=== PATIENT | female | born 1995 | race Hispanic/Latino ===

== ENCOUNTER 2024-08-07 18:19 | Emergency (ER) | payer BC, SELFPAY ==
[2024-08-07 18:22] VITALS: BP 121/78
[2024-08-07 19:33] LABS: ALT (SGPT) 11 U/L (0-35); AST (SGOT) 28 U/L (14-36); Albumin 4.7 g/dl (3.5-5.0); Alkaline Phosphatase 120 U/L (38-126); Blood Urea Nitrogen 11 mg/dl (7-17); Calcium 9.6 mg/dl (8.4-10.2); Carbon Dioxide 25 mmol/L (22-30); Chloride 102 mmol/L (98-107); Glucose 114 mg/dl (70-99); Potassium 4.6 mmol/L (3.5-5.1); Sodium 137 mmol/L (135-145); Total Bilirubin 0.5 mg/dl (0.2-1.3); Total Protein 7.7 g/dl (6.3-8.2); eGFR > 60.00
[2024-08-07 19:43] VITALS: BP 109/71
--- NOTE | 2024-08-07 19:50 | ED.GENMED ---
History of Present Illness
General
Chief Complaint: Dizziness
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
Exam Limitations: other (Language barrier)
Time Seen by Provider: 08/07/24 19:35
History of Present Illness
History of Present Illness:
This is a 29 year old female that comes in with c/o chest pain. States that she started about a week ago with left arm pain. States that today it the moved to her heart. Stats that this was around 6pm. States that she felt dizzy and that when she
lays down she sees stars. States that she was a little nauseated. Denies any fever, chills, SOB, cough, abd pain, vomiting, diarrhea, headache, urinary burning.
Past History
Past History
ED Past Medical History: Other (Tachycardia); Negative Asthma, HTN, Hypercholesterolemia or NIDDM
ED Past Surgical History: (X 1) and Other (Lump removed form back. )
Social History
Tobacco: Non-smoker
Alcohol: None
Personal:
Living: with family
Review of Systems
Review of Systems
All Other Systems: ROS reviewed and negative except as documented in HPI and ROS
Constitutional: Reports no symptoms; Denies fever or chills
EENT: Reports no symptoms
Respiratory: Reports no symptoms; Denies cough or trouble breathing
Cardiac: Reports chest pain
ABD/GI: Reports nausea; Denies abdominal pain, vomiting or diarrhea
: Reports no symptoms; Denies dysuria, frequency or urgency
Musculoskeletal: Reports no symptoms
Skin: Reports no symptoms
Neurological: Reports dizzy; Denies headache
Psychiatric: Reports no symptoms
Phy Exam
General Physical Exam
General Presentation: no apparent distress
General age: appears stated age
General Skin: warm and dry
General Habitus: normal
General Mental: alert
General Hydration: appears well hydrated
ENT Exam
ENT Exam: TM's normal, pharynx normal and neck supple
Eye Exam
Eye Exam: EOMI
Cardiovascular Exam
Cardiovascular Exam: regular rate/rhythm, no edema, no murmur and normal peripheral pulses
Pulmonary Exam
Pulmonary Exam: lungs clear, no respiratory distress, no rales, chest non tender, no crackles, no rhonchi, no wheezing and no cough
Gastrointestinal Exam
Gastrointestinal Exam: normal bowel sounds, non tender, soft, no organomegaly, no pulsatile mass and non distended
Musculoskeletal Exam
Musculoskeletal Exam: full ROM and no edema
Skin Exam
Skin Exam: normal color, warm/dry, no rash and no petechia
Psychiatric Exam
Psychiatric Exam: normal mood/affect
Course
Orders/Labs/Results
Orders:
Orders
08/07/24 18:20
Electrocardiogram (*1) Urgent
Reason for Study: Chest Pain
08/07/24 18:21
EKG- Treatment ONCE
08/07/24 18:56
Comprehensive Metabolic Panel Urgent
HCG, Serum Qualitative Screen Urgent
Troponin I Urgent
08/07/24 19:49
Add On- LAB Urgent
Tests Added?: hcg
CR Chest - 2 Views Urgent
Comment:
Reason For Exam: CHEST PAIN
08/07/24 19:50
Ketorolac [Toradol] 30 mg IV NOW STA
08/07/24 19:59
Complete Blood Count/With Diff Urgent
D-Dimer Urgent
Abnormal Lab Results
08/07/24 08/07/24
18:56 19:59
WBC 11.6 H 10^3/uL
(4.8-10.8)
RBC 3.90 L 10^6/uL
(4.20-5.40)
Hgb 11.7 L g/dL
(12.0-16.0)
Hct 34.2 L %
(37.0-47.0)
Absolute Neuts (auto) 9.3 H 10^3/uL
(1.4-6.5)
Neutrophils % 80.1 H %
(42.2-75.2)
Lymphocytes % 14.0 L %
(20.5-51.1)
Creatinine 0.5 L mg/dL
(0.6-1.0)
Glucose 114 H mg/dl
(70-99)
08/07/24 19:59
08/07/24 18:56
WBC very slightly elevated. H/H low. Glucose nonfasting. Troponin <0.012, D-dimer <0.27
Vital Signs
Initial and Last Documented VS:
Initial Vital Signs
Temp Pulse Resp BP Pulse Ox
98.2 F 93 20 121/78 99
08/07/24 18:22 08/07/24 18:22 08/07/24 18:22 08/07/24 18:22 08/07/24 18:22
Last Documented Vital Signs
Temp Pulse Resp BP Pulse Ox
98.2 F 96 17 103/64 100
08/07/24 18:22 08/07/24 22:15 08/07/24 22:15 08/07/24 21:00 08/07/24 22:15
MDM/Problems Addressed
Differential Diagnosis Includes:
Costochondritis, Coronary syndrome
MDM/Problems Addressed:
This is a 29 year old female that comes in with c/o chest pain. States that she had pain in the left arm that started a week ago. Then tonight she started with pain in her heart. States that she was dizzy and when she laid down she saw stars.
Will check labs. Chest x-ray, and medicate for pain.
Back into see patient. Via The language line, explained to that patient that her chest x-ray is normal and her Troponin and ECG are normal. Patient can use Ibuprofen for pain. Explained that this is most likely musculoskeletal in nature. Will also
give patient the free clinic information. Patient to return with any concerns.
Chronic conditions affecting care:
NA
Acute Exacerbation and/or Progression of Chronic Illness:
NA
*Radiology
Radiology exam reviewed: preliminary read by ED provider (Chest- negative for acute disease)
*Pulse Oximetry
Patient hypoxic: no
*EKG
Interpreted by ED Provider?: Yes
Heart Rate: 78
Rate: normal
Rhythm: sinus arrhythmia
[place]: normal axis
Interval: normal interval
QRS Pattern: normal QRS
Ischemia: no ischemia
*[employer] Interpretation
Rate: normal
Heart Rate: 93
Rhythm: sinus
*Critical Care Note
Total Time (30-74mins, 75-104mins- exclusive of procedures): Not Applicable
ED Attending Note
-
Portions of this chart may have been created with voice recognition software.� Occasional wrong word or��sound alike� substitutions may have occurred due to the inherent limitations of voice recognition software.
Discharge Plan
Departure
Patient Disposition: Home (Routine Discharge)
Date of Disposition: 08/07/24
Time of Disposition: 22:37
Patient with high blood pressure during this ER visit?: No
Condition: Good
Covid-19: Not Applicable
Discharge Problem:
Musculoskeletal chest pain
Instructions: Musculoskeletal Pain
Prescriptions:
No Action
metoprolol succinate 50 mg Tablet Extended Release 24 Hr
50 mg PO DAILY
sucralfate [Carafate] 100 mg/mL suspension
5 ml PO QID Qty: 200 0RF
famotidine [Pepcid] 20 mg tablet
20 mg PO DAILY Qty: 20 0RF
Referrals:
[facility]] - As needed
NONE,* [Family Provider] -
Activity Restrictions/Additional Instructions:
As discussed, your blood work, ECG and chest x-ray are normal. This is most likely musculoskeletal pain. You may use Ibuprofen 600mg every 6 hours with food for pain. You have also been given the information for the free clinic to check into this.
IF YOU HAVE ANY OTHER CONCERNS PLEASE RETURN TO THE EMERGENCY ROOM.
Interventions
Interventions:
*General Assessment Last Done: 08/07/24 18:22
ED- Cardiac Assessment Last Done: 08/07/24 20:02
ED- Neurological Assessment Last Done: 08/07/24 20:02
Discharge Date and Time
Print Language: [place]
[2024-08-07] MEDS: TORADOL 30 MG IV (19:56)
[2024-08-07 20:00] VITALS: BP 101/71
[2024-08-07 20:05] LABS: % Basophils 0.4 % (0-2); % Eosinophils 0.5 % (0-6); % Immature Granulocytes 0.3 % (0-0.5); % Monocytes 4.7 % (1.7-9.3); % Neutrophils 80.1 % (42.2-75.2); Absolute Basophils 0.1 10^3/uL (0-0.2); Absolute Eosinophils 0.1 10^3/uL (0-0.7); Absolute Lymphocytes 1.6 10^3/uL (1.2-3.4); Absolute Monocytes 0.5 10^3/uL (0.1-0.6); Absolute Neutrophils 9.3 10^3/uL (1.4-6.5); Hematocrit 34.2 % (37.0-47.0); Hemoglobin 11.7 g/dL (12.0-16.0); Mean Corp Hgb Conc. 34.2 g/dL (33.0-37.0); Mean Corpuscular Volume 87.7 fL (81.0-99.0); Mean Platelet Volume 10.3 fL (7.4-10.4); Nucleated Red Blood Cells % 0 %; Platelet Count 246 10^3/uL (130-400); White Blood Cell Count 11.6 10^3/uL (4.8-10.8)
[2024-08-07 20:18] LABS: HCG, Serum Qualitative Screen Negative; Troponin I < 0.012 ng/ml
[2024-08-07 20:31] LABS: D-Dimer < 0.27 ug/mlFEU (0.00-0.50)
[2024-08-07 21:00] VITALS: BP 103/64
== END 2024-08-07 22:45 | disposition home or self-care (01) ==
LOC: EMR 18:19
PROVIDERS: Clinical Nurse Specialist Family Health; Emergency Medicine; EMERGENCY PHYSICIAN Emergency Medicine
DX: R07.89 Other chest pain (principal); R42 Dizziness and giddiness
CPT/HCPCS: 99285; 96374; 71046; 80053; 84484; 84703; 85025; 85379; 93005